=== PATIENT | male | born 1990 | race Hispanic/Latino ===

== ENCOUNTER → 2024-02-27 11:13 | Emergency (ER) | payer SELFPAY ==
[2024-02-27 11:15] VITALS: BP 122/76
--- NOTE | 2024-02-27 12:59 | ED.GENMED ---
History of Present Illness
General
Chief Complaint: Skin Surface Trauma
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
Exam Limitations: none
Time Seen by Provider: 02/27/24 12:36
Nursing documentation reviewed up to this point in time: agreed with
History of Present Illness
History of Present Illness:
34 y/o M with right hand dominance
here with a right 5th distal fingertip amputation about 1-1/2 hours ago while he was working. 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
during the fall was grasping from [id number] to try to keep himself from falling and ended up amputating his right fifth finger. He does not really know what he caught it on. He did not fall or have any other injuries. They kept the finger tip
but it was not on ice and is dusky. Patient has some pain but full range of motion of the digit otherwise.
Phy Exam
Physical Exam
Physical Exam:
GENERAL: Alert , in no apparent distress, comfortable at rest
HEAD: NCAT
CV: radial pulse intat
NEUROLOGICAL: Alert and oriented, no focal neuro deficits, , 5/5 strength, sensation intact,
SKIN: Warm and dry, skin avulsion with fingertip amputation right 5th distal phalanx
bone exposed
bleeding controlled
MUSCULOSKELETAL: skin flap missing distal R 5th digit, the bone is [id number]
PIP joint normal
amputtion of distla phalax
PSYCH: Normal and appropriate interaction.
Course
Orders/Labs/Results
Orders:
Orders
02/27/24 11:22
CR Finger(s)/thumb Min 2 Vw Rt Urgent
Comment:
Reason For Exam: injury, amputation
Indicate Which Finger:: Little Finger
02/27/24 13:06
CeFAZolin 2 GRAM [Ancef] 2 grams in 10 ml IV NOW
02/27/24 13:08
Ketorolac [Toradol] 30 mg IV NOW STA
02/27/24 13:16
Tetanus/Diphth/Acelpertussis [Adacel] 0.5 ml IM .ONCE ONE
Vital Signs
Initial and Last Documented VS:
Initial Vital Signs
Temp Pulse Resp BP Pulse Ox
98.1 F 73 18 122/76 98
02/27/24 11:15 02/27/24 11:15 02/27/24 11:15 02/27/24 11:15 02/27/24 11:15
Last Documented Vital Signs
Temp Pulse Resp BP Pulse Ox
98.1 F 74 16 115/71 97
02/27/24 11:15 02/27/24 14:25 02/27/24 14:25 02/27/24 14:25 02/27/24 14:25
MDM/Problems Addressed
Differential Diagnosis Includes:
Amputation, laceration
MDM/Problems Addressed:
34-year-old [id number] Liberian-speaking male presents for a right fifth distal phalanx amputation caused by a fall or near fall while he was working. 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
something and somehow amputated his finger tip. He has full range of motion of the proximal extremity and no significant bleeding. His tetanus was outdated and was updated here. There is bone exposed without a flap of skin to repair. I spoke
with Dr. Lindsay from [facility] who recommended that we irrigate the wound well and dressed with Xeroform, give a dose of IV antibiotics and discharged on p.o. antibiotics for prompt outpatient follow-up. The patient is from out of town but does
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
He was strongly encouraged to return to any ER if he cannot get follow-up. Patient did have the fingertip in the car with him but was not on ice and had been several hours and it was dusky and not able to be reattached. I did speak with the
orthopedist about this. I numbed up the patient's finger with 5 mL of plain lidocaine 1% without epi for a digital block and then soaked him in a Betadine tea-colored saline solution followed by scrubbing with Hibiclens and then applied a Xeroform
dressing.
*Critical Care Note
Total Time (30-74mins, 75-104mins- exclusive of procedures): Not Applicable
ED Attending Note
-
Portions of this chart may have been created with voice recognition software.� Occasional wrong word or��sound alike� substitutions may have occurred due to the inherent limitations of voice recognition software.
Discharge Plan
Departure
Patient Disposition: Home (Routine Discharge)
Date of Disposition: 02/27/24
Time of Disposition: 14:01
Patient with high blood pressure during this ER visit?: No
Condition: Fair
Covid-19: Not Applicable
Discharge Problem:
Amputated finger
Instructions: Wound Care (DC)
Prescriptions:
New
cephalexin 500 mg capsule
500 mg PO QID Qty: 40 0RF
oxycodone 5 mg tablet
5 mg PO BID PRN (Reason: Pain) Qty: 7 0RF
ibuprofen 600 mg tablet
600 mg PO Q8H PRN (Reason: Pain) Qty: 20 0RF
Referrals:
Piter Gerber MD [Active] - Tomorrow
NONE,* [Family Provider] -
Stand Alone Forms: Return to Work
Activity Restrictions/Additional Instructions:
YOU AMPUTATED YOUR FINGERTIP. WE CLEANED IT AND GAVE YOU A TETANUS SHOT AND A DOSE OF IV ANCEF. YOU SHOULD GET THE PRESCRIPTIONS FILLED:
CEPHALEXIN 1 TAB 4 TIMES A DAY FOR 10 DAYS TO PREVENT INFECTION (ANTIBIOTIC) AND MOTRIN 600 MG EVERY 8 HOURS FOR PAIN NEEDED. IF PAIN IS SEVERE YOU CAN USE OXYCODONE 5 MG EVERY 12 HOURRS NEEDED, THIS IS STRONG, NO DRIVING OR ALCOHOL WITH THIS
MEDICATION. YOU NEED TO CALL A HAND SURGEON AND TELL THEM YOU HAVE A FINGERTIP AMPUTATION. YOU NEED TO BE SEEN WITHIN THE NEXT 4 DAYS. LEAVE THE DRESSING ON UNTIL YOU SEE THEM. IF YOU CANNOT SEE A HAND SURGEON BY NEXT SATURDAY YOU SHOULD FOLLOW
UP IN AN EMERGENCY ROOM - BUT THE BEST THING IS A HAND DOCTOR
RETURN FOR ANY CONCERNS.
TE AMPUT� LA YEMA DEL DEDO. LO LIMPIAMOS Y LE PUSIERON FRANK VACUNA CONTRA EL T�TANICO Y FRANK DOSIS DE ANCEF IV. DEBE OBTENER LAS RECETAS:
CEFALEXINA 1 TAB 4 VECES AL D�A SLY 10 D� PARA PREVENIR INFECCI�N (ANTIBIOTICO) Y MOTRIN 600 MG CADA 8 HORAS PARA EL DOLOR SEG�N NECESIDAD. SI EL DOLOR ES VERONICA PUEDE USAR OXICODONA 5 MG CADA 12 HORAS SEG�N NECESITE, ESTO ES NORA, NO
CONDUCIR NI ALCOHOL CON CHRIS MEDICAMENTO. DEBES LLAMAR A UN CIRUJANO DE MANO Y DECIRLE QUE TIENES FRANK AMPUTACI�N EN LA PUNTA DEL DED[place]. DEBE SER [place]IST[place] DE [place]�XIMOS 4 D�. DEJAR EL VESTIDO PUESTO HASTA VERLOS. SI NO PUEDE FIFI A UN
CIRUJANO DE MANO EL KS�XIMO LOPEZ DEBE HACER UN SEGUIMIENTO EN FRANK REBEKAH DE EMERGENCIA, ALISIA LO MEJOR ES UN M�DICO DE MANO
REGRESE POR CUALQUIER INQUIETUD.
Interventions
Interventions:
*Risk Screen - Suicide Last Done: 02/27/24 13:11
*General Assessment Last Done: 02/27/24 11:15
*Neglect/Abuse Screening Last Done: 02/27/24 13:11
ED- Fall Risk Assessment Last Done: 02/27/24 11:56
*ED COVID-19 Vaccine History Last Done: 02/27/24 11:15
*Nursing Disposition Last Done: 02/27/24 14:25
ED-Skin Assessment Last Done: 02/27/24 11:56
Discharge Date and Time
Print Language: ENGLISH
[2024-02-27] MEDS: ANCEF 10 IV (13:21)
[2024-02-27] MEDS: TORADOL 30 MG IV (13:21)
[2024-02-27] MEDS: ADACEL 0.5 ML IM (13:30)
[2024-02-27 14:25] VITALS: BP 115/71
--- NOTE | 2024-02-27 14:30 | EDRN ---
powder coater used to review discharge instructions with patient and his brother. Verbalized understanding.
== END | disposition home or self-care (01) ==
LOC: EMR 11:13
PROVIDERS: EMERGENCY PHYSICIAN Emergency Medicine
DX: S68.126A Partial traumatic metacarpophalangeal amputation of right little finger, initial encounter (principal); W19.XXXA Unspecified fall, initial encounter; Z23 Encounter for immunization
CPT/HCPCS: 99283; 96374; 96375; 90471; 73140; 90715